=== PATIENT | male | born 1955 | race African-American/Black ===

== ENCOUNTER 2016-12-14 10:46 | Emergency (ER) | payer OTHER ==
[~2016-12-14] VITALS: Ht 182.9 cm; Wt 90.0 kg
[2016-12-14 10:47] VITALS: BP 190/91; PULSE 96; RESP 20; TEMP 97.9; O2SAT 98
--- NOTE | 2016-12-14 11:42 | PD ---
HPI . Chest pain and shortness of breath Chief Complaint: Chest Pain Time Seen by Provider: 11:01 Travel History International Travel<30 days: No Contact w/Intl Traveler<30days: No Traveled to known affect area: No History of Present Illness HPI This patient presents with the chief complaint of chest pain or shortness of breath. Onset was about 2 days ago. Symptoms have been continuous. He states that his symptoms are probably due to the fact that he is out of his MDI. He has been out of it for about a week. He states that he is wheezing. He states that his chest pain or tightness. It is exacerbated by breathing and moving. He denies productive cough or fever. He reports a history of COPD. [facility] Past Medical History Narrative Medical The patient reports a history of COPD and leukemia. Diabetes: Yes Social History Tobacco Use: No Review of Systems Except as stated in HPI: all other systems reviewed are Neg General / Constitutional: No: Fever, Chills Cardiovascular: Positive: Chest Pain or Discomfort Respiratory: Positive: Shortness of Breath, Wheezing Physical Exam Narrative GENERAL: Awake and alert and in no acute distress. SKIN: warm/dry. HEAD: Normocephalic. Atraumatic. EYES: Pupils equal and round. No scleral icterus. No injection or drainage. ENT: No nasal bleeding or discharge. Mucous membranes pink and moist. NECK: Trachea midline. Full range of motion without pain.. CARDIOVASCULAR: Regular rate and rhythm. Heart sounds normal. RESPIRATORY: No accessory muscle use. Clear to auscultation. Breath sounds equal bilaterally. MUSCULOSKELETAL: No obvious deformities. NEUROLOGICAL: Awake and alert. No obvious cranial nerve deficits. Motor grossly within normal limits. Normal speech. PSYCHIATRIC: Appropriate mood and affect; insight and judgment normal. Data Data Last Documented VS Vital Signs Date Time Temp Pulse Resp B/P (MAP) Pulse Ox O2 Delivery O2 Flow Rate FiO2 12/14/16 11:45 98.7 88 25 161/87 (111) 99 Room Air Orders Orders Electrocardiogram (12/14/16 11:03) Basic Metabolic Panel (Bmp) (12/14/16 11:03) B-Type Natriuretic Peptide (12/14/16 11:03) Ckmb (Isoenzyme) Profile (12/14/16 11:03) Complete Blood Count With Diff (12/14/16 11:03) Magnesium (Mg) (12/14/16 11:03) Prothrombin Time / Inr (Pt) (12/14/16 11:03) Act Partial Throm Time (Ptt) (12/14/16 11:03) Troponin I (12/14/16 11:03) Chest, Single Ap (12/14/16 11:03) Ecg Monitoring (12/14/16 11:03) Iv Access Insert/Monitor (12/14/16 11:03) Oximetry (12/14/16 11:03) CKMB (12/14/16 12:10) CKMB% (12/14/16 12:10) Labs Laboratory Tests Test 12/14/16 12:10 White Blood Count 16.2 TH/MM3 Red Blood Count 4.07 MIL/MM3 Hemoglobin 12.1 GM/DL Hematocrit 36.7 % Mean Corpuscular Volume 90.2 FL Mean Corpuscular Hemoglobin 29.8 PG Mean Corpuscular Hemoglobin Concent 33.1 % Red Cell Distribution Width 14.1 % Platelet Count 240 TH/MM3 Mean Platelet Volume 8.4 FL Neutrophils (%) (Auto) 33.8 % Lymphocytes (%) (Auto) 61.3 % Monocytes (%) (Auto) 3.8 % Eosinophils (%) (Auto) 0.8 % Basophils (%) (Auto) 0.3 % Neutrophils # (Auto) 5.5 TH/MM3 Lymphocytes # (Auto) 9.9 TH/MM3 Monocytes # (Auto) 0.6 TH/MM3 Eosinophils # (Auto) 0.1 TH/MM3 Basophils # (Auto) 0.1 TH/MM3 CBC Comment AUTO DIFF Differential Total Cells Counted 100 Neutrophils % (Manual) 27 % Lymphocytes % 68 % Monocytes % 4 % Basophils % 1 % Neutrophils # (Manual) 4.4 TH/MM3 Differential Comment FINAL DIFF MANUAL Smudge Cells PRESENT Platelet Estimate NORMAL Platelet Morphology Comment NORMAL Prothrombin Time 11.4 SEC Prothromb Time International Ratio 1.0 RATIO Activated Partial Thromboplast Time 31.0 SEC Blood Urea Nitrogen 10 MG/DL Creatinine 1.20 MG/DL Random Glucose 112 MG/DL Calcium Level 8.4 MG/DL Magnesium Level 2.3 MG/DL Sodium Level 140 MEQ/L Potassium Level 3.4 MEQ/L Chloride Level 107 MEQ/L Carbon Dioxide Level 25.8 MEQ/L Anion Gap 7 MEQ/L Estimat Glomerular Filtration Rate 75 ML/MIN Total Creatine Kinase 180 U/L Creatine Kinase MB 1.0 NG/ML Troponin I LESS THAN 0.02 NG/ML B-Type Natriuretic Peptide 39 PG/ML MDM Medical Decision Making Medical Screen Exam Complete: Yes Emergency Medical Condition: Yes Interpretation(s) EKG shows a sinus rhythm. He has changes compatible with LVH. No acute ST segment elevation or depression. Differential Diagnosis Differential diagnosis of chest pain includes but is not limited to musculoskeletal pain, pulmonary embolism, acute coronary syndrome, pneumonia, pleurisy Differential diagnosis of dyspnea includes but is not limited to congestive heart failure, pneumonia, wheezing, pneumothorax, pulmonary embolism Narrative Course This patient presents for chest pain and shortness of breath. He states that he has a history of COPD and is out of his MDI. He believes that his symptoms are secondary to this. His chest sounds clear with good air movement throughout. Sats are 98% on room air. He looks very comfortable. Last Impressions Chest X-Ray 12/14/16 1103 Signed Impressions: Service Date/Time: Wednesday, December 14, 2016 11:16 - CONCLUSION: No acute disease. Abhijit Carcamo MD The chest x-ray was independently viewed by me. CBC & BMP Diagram 12/14/16 12:10 Calcium Level 8.4 L, Magnesium Level 2.3 trop < 0.02 BNP 39 I do not have any old CBCs for comparison. He does report a history of leukemia. He does not have any symptoms suggestive of infection. This patient has had chest pain for a couple of days. His cardiac enzymes are negative. I have a low index of suspicion for ACS. I will refill his MDI and discharge him to home. Diagnosis Primary Impression: Chest pain Qualified Codes: R07.9 - Chest pain, unspecified Additional Impressions: Shortness of breath COPD (chronic obstructive pulmonary disease) Qualified Codes: J44.9 - Chronic obstructive pulmonary disease, unspecified Patient Instructions: COPD (Chronic Obstructive Pulmonary Disease) (DC), General Instructions Med/Other Pt SpecificInfo: Prescription(s) given Scripts Albuterol 18 GM Inh (Ventolin Hfa 18 GM Inh) 90 Mcg/Act Aer 2 PUFF INH Q4H Y for SHORTNESS OF BREATH, #1 INHALER 0 Refills Prov: Mariah Martinez MD 12/14/16 Disposition: 01 DISCHARGE HOME Condition: Stable Mariah Martinez MD Dec 14, 2016 11:42
[2016-12-14 11:45] VITALS: BP 161/87; PULSE 88; RESP 25; TEMP 98.7; O2SAT 99
--- NOTE | 2016-12-14 12:14 | RADRPT ---
EXAM DATE/TIME: 12/14/2016 11:16 [facility] COMPARISON: No previous studies available for comparison. INDICATIONS : Chest pain. MEDICAL HISTORY : Hypertension. Diabetes mellitus type II. Myocardial infarction. SURGICAL HISTORY : Cardiac stents. ENCOUNTER: Initial ACUITY: 1 day PAIN SCORE: 7/10 LOCATION: Left chest FINDINGS: A single view of the chest demonstrates the lungs to be symmetrically aerated without evidence of mas s, infiltrate or effusion. The cardiomediastinal contours are unremarkable. Osseous structures are intact. CONCLUSION: No acute disease. Abhijit Carcamo MD on December 14, 2016 at 12:12 Board Certified Radiologist. This report was verified electronically.
[2016-12-14 13:06] LABS: AUTOMATED NEUTROPHIL # 5.5 TH/MM3 (1.8-7.7); BASOPHIL # 0.1 TH/MM3 (0-0.2); BASOPHIL % 0.3 % (0.0-2.0); EOSINOPHIL # 0.1 TH/MM3 (0-0.4); EOSINOPHIL % 0.8 % (0.0-4.0); HEMATOCRIT 36.7 % (39.0-51.0); LYMPH % 61.3 % (9.0-44.0); LYMPHOCYTE # 9.9 TH/MM3 (1.0-4.8); MEAN CELL VOLUME 90.2 FL (80.0-100.0); MEAN CORPUSCULAR HEMOGLOBIN 29.8 PG (27.0-34.0); MEAN CORPUSCULAR HGB CONC 33.1 % (32.0-36.0); MONO % 3.8 % (0.0-8.0); NEUT % 33.8 % (16.0-70.0); PLATELET COUNT 240 TH/MM3 (150-450); RED BLOOD COUNT 4.07 MIL/MM3 (4.50-5.90); RED CELL DISTRIBUTION WIDTH 14.1 % (11.6-17.2); WHITE BLOOD COUNT 16.2 TH/MM3 (4.0-11.0)
[2016-12-14 13:08] LABS: HEMO FLAGS AUTO DIFF
[2016-12-14 13:15] LABS: PROTHROMBIN TIME - PATIENT 11.4 SEC (9.8-11.6)
[2016-12-14 13:25] LABS: ANION GAP 7 MEQ/L (5-15); BICARBONATE 25.8 MEQ/L (21.0-32.0); BLOOD UREA NITROGEN 10 MG/DL (7-18); CHLORIDE 107 MEQ/L (98-107); GLOMERULAR FILTRATION RATE 75 ML/MIN (>89); MAGNESIUM 2.3 MG/DL (1.5-2.5); POTASSIUM 3.4 MEQ/L (3.5-5.1); SODIUM (NA) 140 MEQ/L (136-145)
[2016-12-14 13:29] LABS: CREATINE KINASE 180 U/L (39-308)
[2016-12-14 14:05] LABS: BASOPHILS 1 % (0-2); NEUTROPHIL # MANUAL DIFF 4.4 TH/MM3 (1.8-7.7); POLYS (SEG NEUTROPHILS) 27 % (16-70); WBC DIFF SAMPLE 100
[2016-12-14 14:06] LABS: SMUDGE CELLS PRESENT PRESENT
[2016-12-14 14:07] LABS: PLATELET ESTIMATE SMEAR NORMAL (NORMAL); PLATELET MORPHOLOGY NORMAL (NORMAL)
[2016-12-14 14:08] LABS: SCAN/DIFF FINAL DIFF MANUAL
[2016-12-14 14:15] VITALS: BP 171/90; PULSE 78; RESP 22; O2SAT 94
[2016-12-14] MEDS ORDERED: VENTAER INH (14:16)
[2016-12-14] MEDS ORDERED: HYDR-3288 PO (14:52)
--- NOTE | 2016-12-14 20:36 | EKG ---
Date Performed: 12/14/2016 Time Performed: 12:10:05 PTAGE: 61 years EKG: Sinus rhythm POSSIBLE LEFT ATRIAL ENLARGEMENT POSSIBLE RIGHT VENTRICULAR CONDUCTION DELAY LEFT ANTERIOR FASCICULA R BLOCK LEFT VENTRICULAR HYPERTROPHY AND ST-T CHANGE ABNORMAL ECG NO PREVIOUS TRACING DOCTOR: Clemente Concepcion Interpretating Date/Time 12/14/2016 20:35:35
== END 2016-12-14 15:18 | disposition home or self-care (01) ==
LOC: NEPC 10:46
DX: R07.9 Chest pain, unspecified (principal); R06.02 Shortness of breath; J44.9 Chronic obstructive pulmonary disease, unspecified; R06.2 Wheezing; R94.31 Abnormal electrocardiogram [ECG] [EKG]; E11.9 Type 2 diabetes mellitus without complications; Z79.899 Other long term (current) drug therapy; Z86.2 Personal history of diseases of the blood and blood-forming organs and certain disorders involving the immune mechanism; Z87.09 Personal history of other diseases of the respiratory system
CPT/HCPCS: 71010; 80048; 82550; 82552; 83735; 83880; 84484; 85007; 85027; 85610; 85730; 93005